=== PATIENT | female | born 1995 | race Caucasian/White ===

== ENCOUNTER 2020-11-04 02:31 | Inpatient (IN) | payer OTHER ==
[~2020-11-04] VITALS: Ht 157.5 cm; Wt 77.6 kg
[2020-11-04] MEDS ORDERED: MORPHINE SULFATE INJ 4 MG/ML DISP.SYRIN ONE (03:07)
[2020-11-04] MEDS ORDERED: ONDANSETRON HCL/PF 4 MG/2 ML VIAL ONE (03:07)
--- NOTE | 2020-11-04 03:15 | NUR ---
BIBS FOR C/O RLQ ABD PAIN RADIATING TO THE BACK. +N/V
[2020-11-04 03:18] LABS: BASOPHILS # (AUTO) 0.1 /CMM (0.0-0.2); BASOPHILS % (AUTO) 0.5 % (0.0-2.0); EOSINOPHILS % (AUTO) 0.2 % (0.0-6.0); HEMATOCRIT 41 % (33-45); HEMOGLOBIN 14.1 g/dL (11.5-14.8); LYMPHOCYTES # (AUTO) 1.8 /CMM (0.8-4.8); LYMPHOCYTES % (AUTO) 10.1 % (20.0-44.0); MEAN CORPUSCULAR HGB CONC 34 g/dl (31.0-36.0); MEAN CORPUSCULAR VOLUME 92 fL (82-100); MONOCYTES # (AUTO) 0.9 /CMM (0.1-1.30); MONOCYTES % (AUTO) 4.9 % (2.0-12.0); NEUTROPHILS # (AUTO) 14.9 /CMM (1.8-8.9); NEUTROPHILS % (AUTO) 84.3 % (43.0-81.0); PLATELET COUNT (AUTO) 233 /CMM (150-450); RED BLOOD CELL COUNT(AUTO) 4.51 MIL/uL (4.0-5.2); WHITE BLOOD COUNT (AUTO) 17.7 K/uL (4.3-11.0)
[2020-11-04 03:20] LABS: BILIRUBIN,URINE SMALL (NEGATIVE); COLOR,URINE YELLOW (YELLOW); LEUKOCYTE ESTERASE ,URINE NEGATIVE (NEGATIVE); NITRITE, URINE NEGATIVE (NEGATIVE); PROTEIN,URINE TRACE mg/dl (NEGATIVE); UGLUCOSE NEGATIVE (NEGATIVE); UROBILINOGEN,URINE 0.2 EU/dL (0.2)
[2020-11-04] MEDS ORDERED: MORPHINE SULFATE INJ 2 MG/ML DISP.SYRIN IV ONE (03:30)
[2020-11-04] MEDS ORDERED: ONDANSETRON HCL/PF 4 MG/2 ML VIAL IV ONE (03:30)
[2020-11-04 03:32] LABS: CALCIUM, SERUM 9.4 mg/dL (8.5-10.1); CREATININE 0.8 mg/dL (0.6-1.3); POTASSIUM 3.7 mmol/L (3.5-5.1)
[2020-11-04 03:39] LABS: ALBUMIN 4.3 g/dL (3.4-5.0); BILIRUBIN,DIRECT 0.2 mg/dL (0.0-0.2); TOTAL PROTEIN, SERUM 7.4 g/dL (6.4-8.2)
[2020-11-04 03:55] LABS: BACTERIA,URINE None seen /HPF (None Seen); RBC,URINE 0-2 /HPF (0-2); SQUAMOUS EPITHELIAL CELL,UR Few /HPF (None Seen); WBC,URINE 0-2 /HPF (0-3)
[2020-11-04 03:56] LABS: MUCUS,URINE Few /LPF (None Seen)
--- NOTE | 2020-11-04 05:36 | NUR ---
ER MD SPOKE TO DR. SMITH REGARDING PT ADMISSION.
--- NOTE | 2020-11-04 05:39 | NUR ---
COVID SWAB COLLECTED AND SENT TO LAB
--- NOTE | 2020-11-04 05:40 | NUR ---
DR. HENRIQUEZ PAGED PER JOVANY CRUZ ORDER.
[2020-11-04] MEDS ORDERED: ONDANSETRON HCL/PF 4 MG/2 ML VIAL IVP PRN (06:00)
[2020-11-04] MEDS ORDERED: IV D5/0.45 NACL 1,000 ML IV PRN (06:00)
[2020-11-04] MEDS ORDERED: MORPHINE SULFATE INJ 2 MG/ML DISP.SYRIN IV PRN (06:00)
[2020-11-04] MEDS ORDERED: ACETAMINOPHEN 650 MG/SUPP.RECT RC PRN (06:00)
--- NOTE | 2020-11-04 06:02 | NUR ---
M/S 312-2
--- NOTE | 2020-11-04 06:31 | NUR ---
LAB CALLED REGARDING NEGATIVE COVID RESULT.
--- NOTE | 2020-11-04 06:34 | NUR ---
REPORT CALLED TO M/S LAUREANO DELGADO.
--- NOTE | 2020-11-04 06:49 | NUR ---
PT TAKEN TO 312
--- NOTE | 2020-11-04 07:55 | NUR ---
medicated for abd. pain with morphine.
[2020-11-04] MEDS: METRONIDAZOLE 500MG/ NS 100ML 500 MG in PREMIX 1 EA IV SCH ×4 (07:56→23:25)
[2020-11-04 08:00] VITALS: BP 124/72
[2020-11-04] MEDS: LEVOFLOXACIN 500 MG /D5W 100ML 500 MG in PREMIX 1 EA IV SCH (09:38)
[2020-11-04] MEDS: PANTOPRAZOLE 40 MG VIAL IV SCH (09:38)
--- NOTE | 2020-11-04 10:00 | NUR ---
left for surg. at this time,just voided sm. amt.
[2020-11-04] MEDS ORDERED: ROCURONIUM BROMIDE 50 MG/5 ML ONE (10:30)
[2020-11-04] MEDS ORDERED: HYDROMORPHONE INJ 2 MG/ML DISP.SYRIN ONE (10:30)
[2020-11-04] MEDS ORDERED: MIDAZOLAM HCL 2 MG/2ML VIAL ONE (10:30)
[2020-11-04] MEDS ORDERED: BUPIVACAINE MPF 0.5% W/EPI INJ 30 ML VIAL ONE (10:31)
[2020-11-04] MEDS ORDERED: LIDOCAINE 1% INJ 50 ML MDV IJ ONE (10:31)
[2020-11-04] MEDS ORDERED: NEOSTIGMINE METHYLSULFATE INJ 1 MG/ML VIAL ONE (10:37)
[2020-11-04] MEDS ORDERED: GLYCOPYRROLATE 0.2 MG/ML VIAL ONE (10:38)
--- NOTE | 2020-11-04 11:25 | NUR ---
returned to rm.skin warm and dry.vs stable. no c/o pain.3 wd. sites with sm. dressing on abd.. dry and intact.instructed not to get oob without help,and not. to amb. till tonight.call light within reach.iv infusing.side rails up.
[2020-11-04] MEDS: IV LR 1000 ML 1,000 ML IV PRN ×2 (13:11→22:14)
[2020-11-04 16:00] VITALS: BP 114/56
--- NOTE | 2020-11-04 18:00 | NUR ---
PLACED ON BEDPAN WITH NO VOID YET.DENIES PRESSURE IN BLADDER.SET UP CLEAR LIQ. TRAY.TOOK SMALL AMT.THEN C/O NAUSEA,GIVEN ZOFRAN IV.FRIEND
[2020-11-04] MEDS: ONDANSETRON HCL/PF 4 MG/2 ML VIAL IVP PRN (18:54)
--- NOTE | 2020-11-04 19:30 | NUR ---
MSRN FULLY AWAKE, S/P LAP APPY THIS MORNING. PRESENT IVF INFUSING WELL. HAVE NOT VOIDED YST SINCE POST SURGERY. STATED WILL CLL IF NEEDED.LAP SITES X 3 SMALL DRESSING D/I. ABLE TO TOLERATE FLIDS, ALTHOUGH SLIGHTLY NAUSEATED, NO EMESIS. TO CONTINUE.
[2020-11-04 20:00] VITALS: BP 93/52
--- NOTE | 2020-11-04 20:25 | NUR ---
MSRN POST OP ABD PAIN, DILAUDED 1 MG IVP ADMINISTERED. CLOSELY WATCHED.
[2020-11-04] MEDS: HYDROMORPHONE 1 MG/1 ML DISP.SYRIN IV PRN (20:28)
--- NOTE | 2020-11-04 23:00 | NUR ---
MSRN ASSISTED TO RESTROOM, VOIDED FREELY. PRENT IVF CONTINUED.
[2020-11-05] MEDS: HYDROMORPHONE 1 MG/1 ML DISP.SYRIN IV PRN ×3 (03:05→17:32)
--- NOTE | 2020-11-05 03:16 | NUR ---
MSRN VERBALIZES POST OP PAIN DILAUDED 1MG CANVAS BASTER ADMINISTERED. ENCOURAGED AMBULATION ONCE PAIN SUBSIDES.
[2020-11-05 06:30] LABS: BASOPHILS % (AUTO) 0.3 % (0.0-2.0); EOSINOPHILS % (AUTO) 0.1 % (0.0-6.0); HEMATOCRIT 36 % (33-45); LYMPHOCYTES # (AUTO) 2.2 /CMM (0.8-4.8); MEAN CORPUSCULAR HGB CONC 33 g/dl (31.0-36.0); MEAN CORPUSCULAR VOLUME 94 fL (82-100); MONOCYTES # (AUTO) 0.7 /CMM (0.1-1.30); MONOCYTES % (AUTO) 5.5 % (2.0-12.0); NEUTROPHILS # (AUTO) 10.1 /CMM (1.8-8.9); NEUTROPHILS % (AUTO) 77.1 % (43.0-81.0); PLATELET COUNT (AUTO) 196 /CMM (150-450); RED BLOOD CELL COUNT(AUTO) 3.84 MIL/uL (4.0-5.2)
[2020-11-05] MEDS: METRONIDAZOLE 500MG/ NS 100ML 500 MG in PREMIX 1 EA IV SCH ×4 (06:38→23:09)
[2020-11-05 07:10] LABS: BILIRUBIN,TOTAL 0.7 mg/dL (0.2-1.0); CALCIUM, SERUM 8.7 mg/dL (8.5-10.1); CREATININE 0.8 mg/dL (0.6-1.3); MAGNESIUM 1.9 mg/dL (1.8-2.4); PHOSPHORUS 2.8 mg/dL (2.5-4.9); POTASSIUM 3.7 mmol/L (3.5-5.1)
--- NOTE | 2020-11-05 07:30 | NUR ---
RN MS NOTES PT IN BED, ASLEEP, EASY TO AROUSE, ALERT AND ORIENTED, IV FLUIDS INFUSING WELL, CALL LIGHT WITHIN REACH.
--- NOTE | 2020-11-05 07:40 | NUR ---
MSRN AMBULATE AROUND HALLWAYS TWICE, TOLERATED WELL.
[2020-11-05 08:00] VITALS: BP 120/73
[2020-11-05] MEDS: LEVOFLOXACIN 500 MG /D5W 100ML 500 MG in PREMIX 1 EA IV SCH (08:33)
[2020-11-05] MEDS: PANTOPRAZOLE 40 MG VIAL IV SCH (08:33)
[2020-11-05] MEDS: ONDANSETRON HCL/PF 4 MG/2 ML VIAL IVP PRN ×2 (12:29→17:57)
--- NOTE | 2020-11-05 13:06 | NUR ---
RN MS NOTES PT IN BED, RESTING, ZOFRAN GIVEN FOR EPISODES OF NAUSEA AND VOMITING, VERBALIZED RELIEF AFTER ADMINSTRATION, IV FLUIDS INFUSING WELL, NO COMPLAINT OF PAIN AT THIS TIME, CALL LIGHT KEPT WITHIN REACH.
--- NOTE | 2020-11-05 15:39 | NUR ---
RN MS NOTES PT SEEN BY DR. SMITH, ORDERS GIVEN, NOTED AND CARRIED OUT.
[2020-11-05 16:00] VITALS: BP 128/80
[2020-11-05] MEDS: IV LR 1000 ML 1,000 ML IV PRN (17:31)
--- NOTE | 2020-11-05 18:21 | NUR ---
RN MS NOTES PT IN BED RESTING, PAIN AND NAUSEA MEDS GIVEN ORDERED, VERBALIZED RELIEF, IV FLUIDS INFUSING WELL, ENCOURAGED AMBULATION, PT ABLE TO AMBULATE SHORT DISTANCES INSIDE HER ROOM, PM MEDS GIVEN, CALL LIGHT WITHIN REACH, NEEDS ATTENDED.
--- NOTE | 2020-11-05 19:30 | NUR ---
MS RN OPENING NOTES RECEIVED PATIENT IN BED, AWAKE, A&O X 4, NOT IN ANY FORM OF ACUTE DISTRESS NOTED. VS WNL, ON RA TOLERATING WELL. NO SOB NOTED. NO COMPLAINTS OF PAIN AT THIS TIME. IV ACCESS ON R AC G#18 NOTED, INTACT AND FLUSHES WELL. NO REDNESS NOTED. NOTED WITH DRY AND INTACT DRESSING ON THE PROCEDURE SITE (3 LAP SITES ON THE ABDOMEN), NO S/SX OF INFECTION NOTED. SAFETY PRECAUTIONS OBSERVED: BED ON LOWEST LOCKED POSITION, KEPT SIDE RAILS UP X 2. KEPT CALL LIGHT WITHIN EASY REACH. INSTRUCTED TO USE CALL LIGHT WHEN ASSISTANCE IS NEEDED. PATIENT VERBALIZED UNDERSTANDING. WILL CONTINUE TO MONITOR PATIENT'S CURRENT STATUS.
[2020-11-05 20:00] VITALS: BP 128/78
[2020-11-06] MEDS: METRONIDAZOLE 500MG/ NS 100ML 500 MG in PREMIX 1 EA IV SCH ×2 (05:12→11:15)
--- NOTE | 2020-11-06 06:36 | NUR ---
MS RN CLOSING NOTES PATIENT IN BED, ASLEEP, EASILY AWAKEN BY VERBAL AND TACTILE STIMULI, NOT IN ANY FORM OF ACUTE DISTRESS NOTED. VS WNL, ON RA TOLERATING WELL. NO SOB NOTED. NO COMPLAINTS OF PAIN AT THIS TIME. ONGOING IV OF LR 1L X 75 CC/HR INFUSING WELL ON PATIENT'S RAC, NO REDNESS, NO S/SX OF INFILTRATION NOTED. NOTED WITH DRY AND INTACT DRESSING ON THE PROCEDURE SITE (3 LAP SITES ON THE ABDOMEN), NO S/SX OF INFECTION NOTED. SAFETY PRECAUTIONS OBSERVED AND MAINTAINED DURING THE SHIFT: BED ON LOWEST LOCKED POSITION, KEPT SIDE RAILS UP X 2. KEPT CALL LIGHT WITHIN EASY REACH. ENDORSED TO MORNING SHIFT NURSE FOR CONTINUITY OF CARE.
[2020-11-06 06:41] LABS: CREATININE 0.7 mg/dL (0.6-1.3); MAGNESIUM 1.7 mg/dL (1.8-2.4); POTASSIUM 3.4 mmol/L (3.5-5.1)
--- NOTE | 2020-11-06 07:25 | NUR ---
MSRN OPENING NOTES PATIENT IN BED, ASLEEP, EASILY AWAKEN BY VERBAL AND TACTILE STIMULI, NOT IN ANY FORM OF ACUTE DISTRESS NOTED. VS WNL, ON RA TOLERATING WELL. NO SOB NOTED. NO COMPLAINTS OF PAIN AT THIS TIME. ONGOING IV OF LR 1L X 75 CC/HR INFUSING WELL ON PATIENT'S RAC, NO REDNESS, NO S/SX OF INFILTRATION NOTED. NOTED WITH DRY AND INTACT DRESSING ON THE PROCEDURE SITE (3 LAP SITES ON THE ABDOMEN), NO S/SX OF INFECTION NOTED. SAFETY PRECAUTIONS OBSERVED AND MAINTAINED DURING THE SHIFT: BED ON LOWEST LOCKED POSITION, KEPT SIDE RAILS UP X 2. KEPT CALL LIGHT WITHIN EASY REACH.
[2020-11-06 07:53] LABS: BASOPHILS % (AUTO) 0.3 % (0.0-2.0); EOSINOPHILS % (AUTO) 0.2 % (0.0-6.0); HEMATOCRIT 35 % (33-45); LYMPHOCYTES # (AUTO) 1.8 /CMM (0.8-4.8); LYMPHOCYTES % (AUTO) 16.2 % (20.0-44.0); MEAN CORPUSCULAR HGB CONC 34 g/dl (31.0-36.0); MEAN CORPUSCULAR VOLUME 93 fL (82-100); MONOCYTES # (AUTO) 0.7 /CMM (0.1-1.30); NEUTROPHILS # (AUTO) 8.7 /CMM (1.8-8.9); NEUTROPHILS % (AUTO) 77.3 % (43.0-81.0); PLATELET COUNT (AUTO) 184 /CMM (150-450); RED BLOOD CELL COUNT(AUTO) 3.82 MIL/uL (4.0-5.2); WHITE BLOOD COUNT (AUTO) 11.2 K/uL (4.3-11.0)
[2020-11-06 08:00] VITALS: BP 119/76
[2020-11-06] MEDS: LEVOFLOXACIN 500 MG /D5W 100ML 500 MG in PREMIX 1 EA IV SCH (08:08)
[2020-11-06] MEDS: PANTOPRAZOLE 40 MG VIAL IV SCH (08:08)
[2020-11-06] MEDS ORDERED: Magnesium 1GM/D5W 100ML PREMIX 100 ML IV SCH (09:00)
[2020-11-06] MEDS ORDERED: POTASSIUM CHLORIDE 20 MEQ TAB.PRT.SR PO ONE (09:00)
[2020-11-06] MEDS ORDERED: ACETAMINOPHEN 650 MG/20.3 ML UDC PO PRN (13:30)
[2020-11-06] MEDS ORDERED: ACETAMINOPHEN 325 MG TABLET PO PRN (13:30)
--- NOTE | 2020-11-06 17:09 | NUR ---
[facility] PT LEFT HOSPITAL AT 1700 ACCOMPIED BY FRIEND DOWNSTAIRS TO CAR. DISCHARGE FORM AND BELONGINGS FORM SIGNED AND ALL BELONGINGS ACCOUNTED FOR BEFORE LEAVING. IV SAFELY REMOVED AND REMINDED PT TO FOLLOW UP WITH DR SMITH AFTER 1 WEEK AND TO ADVANCE DIET TOLERATED
== END 2020-11-06 17:00 | disposition home or self-care (01) | DRG 853 ==
LOC: ER 02:37 → MED 06:06
PROVIDERS: ADMIT Internal Medicine; ATTEND Internal Medicine
PROC: 0DTJ4ZZ Resection of Appendix, Percutaneous Endoscopic Approach (ICD-10-PCS; principal; 2020-11-04)
DX: A41.9 Sepsis, unspecified organism (principal); K35.33 Acute appendicitis with perforation, localized peritonitis, and gangrene, with abscess; E11.9 Type 2 diabetes mellitus without complications; Z88.1 Allergy status to other antibiotic agents; Z88.0 Allergy status to penicillin; Z20.822 Contact with and (suspected) exposure to COVID-19; N83.209 Unspecified ovarian cyst, unspecified side; Z98.890 Other specified postprocedural states
CPT/HCPCS: 36415; 80048-TC; 80053-TC; 80076-TC; 81001; 83690-TC; 83735-TC; 83880; 84100-TC; 84703-TC; 85025-TC; 85610-TC; 85730-TC; 87070-TC; 87075-TC; 87081-TC; 88304-TC; A4216; C9113; G0378; J0330; J1100; J1170; J1885; J1956; J2250; J2270; J2405; J2704; J3475; J3490; J7120